=== PATIENT | female | born 1945 | race Caucasian/White ===

== ENCOUNTER 2018-04-28 12:42 | Emergency (ER) | payer MEDICARE, OTHER ==
[~2018-04-28] VITALS: Ht 162.6 cm; Wt 111.8 kg
[~2018-04-28 12:42] MED LIST: ADVIL 200MG TA200 MG PO; KLOR-CON 1010 MEQ PO; PRILOSEC 20MG20 MG PO; TRIAMTERENE W/H1 CAP PO; TYLENOL 500MG500 MG PO
[2018-04-28 12:46] VITALS: TEMP 97.5
[2018-04-28] MEDS ORDERED: PERCOCET 325 MG1 TA2 PO (13:39)
[2018-04-28 14:12] VITALS: BP 115/67; PULSE 63
== END 2018-04-28 14:15 | disposition home or self-care (01) ==
LOC: COL.ER 12:42
DX: M23.91 Unspecified internal derangement of right knee (principal); I10 Essential (primary) hypertension; X50.0XXA Overexertion from strenuous movement or load, initial encounter
CPT/HCPCS: L1846